=== PATIENT | female | born 1975 | race Two or more races ===

== ENCOUNTER 2021-04-13 09:56 | Emergency (ER) | payer OTHER ==
[~2021-04-13] VITALS: Ht 157.5 cm; Wt 74.8 kg
[2021-04-13] MEDS ORDERED: MORPHINE SULFATE INJ 4 MG/ML DISP.SYRIN ONE (10:21)
[2021-04-13] MEDS ORDERED: ONDANSETRON HCL/PF 4 MG/2 ML VIAL ONE (10:22)
[2021-04-13] MEDS ORDERED: ONDANSETRON HCL/PF 4 MG/2 ML VIAL IVP ONE (10:30)
[2021-04-13] MEDS ORDERED: IV NS 0.9% 1,000 ML BAG IV ONE (10:30)
[2021-04-13] MEDS ORDERED: MORPHINE SULFATE INJ 2 MG/ML DISP.SYRIN IV ONE (10:30)
--- NOTE | 2021-04-13 10:34 | NUR ---
Patient awake alert orrreinted hooked inthe monitor ,gown c.c abd .pain saline locked started blood draw obtained and send to lab .
[2021-04-13 10:39] LABS: BASOPHILS # (AUTO) 0.1 /CMM (0.0-0.2); BASOPHILS % (AUTO) 0.4 % (0.0-2.0); EOSINOPHILS % (AUTO) 1.1 % (0.0-6.0); HEMATOCRIT 37 % (33-45); LYMPHOCYTES % (AUTO) 21.7 % (20.0-44.0); MEAN CORPUSCULAR HGB CONC 33 g/dl (31.0-36.0); MEAN CORPUSCULAR VOLUME 90 fL (82-100); MONOCYTES # (AUTO) 1.1 /CMM (0.1-1.30); MONOCYTES % (AUTO) 7.8 % (2.0-12.0); NEUTROPHILS # (AUTO) 9.6 /CMM (1.8-8.9); PLATELET COUNT (AUTO) 290 /CMM (150-450)
[2021-04-13 10:48] LABS: CALCIUM, SERUM 8.4 mg/dL (8.5-10.1); CREATININE 0.6 mg/dL (0.6-1.3); POTASSIUM 3.5 mmol/L (3.5-5.1)
[2021-04-13 10:54] LABS: ALBUMIN 3.2 g/dL (3.4-5.0); BILIRUBIN,DIRECT 0.1 mg/dL (0.0-0.2); BILIRUBIN,TOTAL 0.4 mg/dL (0.2-1.0); TOTAL PROTEIN, SERUM 6.7 g/dL (6.4-8.2)
--- NOTE | 2021-04-13 11:27 | NUR ---
Back from Ct .
[2021-04-13] MEDS ORDERED: DOXY100C41 PO (11:56)
[2021-04-13] MEDS ORDERED: IBUP-1957 PO (11:56)
[2021-04-13] MEDS ORDERED: ONDA4TAB11 PO (11:56)
[2021-04-13 12:56] VITALS: BP 134/70
--- NOTE | 2021-04-13 12:56 | NUR ---
removed saline lock left wrist noted cath intact no edema no pain . Patient agreed to see pmd patient is ambulatory .
--- NOTE | 2021-04-13 12:56 | NUR ---
Patient discharged to home in stable condition. Written and verbal after care instructions given. Patient verbalizes understanding of instruction.
== END 2021-04-13 12:58 | disposition home or self-care (01) ==
LOC: ER 10:01
DX: R10.13 Epigastric pain (principal); Z88.0 Allergy status to penicillin; Z79.899 Other long term (current) drug therapy
CPT/HCPCS: 36415; 74176; 80048; 80076; 83690; 84703; 85025; 96374; 96375; 99284; J2270; J2405; J7030